=== PATIENT | male | born 2005 | race Two or more races ===

== ENCOUNTER → 2024-07-30 | Outpatient (CLI) | payer BC, SELFPAY ==
--- NOTE | 2024-07-30 | XR_ITS ---
Examination: Testicular sonography complete TECHNIQUE: Grayscale sonographic images testes, assessment arterial inflow venous outflow, Doppler spectral analysis carful analysis Exam date and time: July 30, 2024 1219 hours INDICATIONS: Bilateral groin pain radiating to the testicles beginning 2 months ago. FINDINGS: Right testis 3.9 cm epididymis 1.0 cm Arterial flow testicle. No testicular mass Left testis 3.8 cm epididymis 1.1 cm Arterial flow testicle. No testicular mass IMPRESSION: Negative study
== END | disposition home or self-care (01) ==
PROVIDERS: PCP Nurse Practitioner Family; Referring Provider Nurse Practitioner Family; Visit Provider Nurse Practitioner Family
DX: N50.812 Left testicular pain (principal); N50.811 Right testicular pain
CPT/HCPCS: 76870

== ENCOUNTER → 2024-08-10 | Outpatient (CLI) | payer BC, SELFPAY ==
--- NOTE | 2024-08-10 10:30 | XR_ITS ---
Examination: Abdomen sonogram, Limited Date and time of exam: August 10, 2024 1110 hours INDICATIONS: Abnormal serum ferritin levels on examination 3 months ago Technique: Real-time monge scale transabdominal sonographic images of the upper abdomen obtained. Findings: Normal gallbladder Normal common bile duct 0.2 cm Pancreatic head 1.9 cm Liver 12.0 cm smooth contour No focal liver lesions Normal hepatopedal portal venous oh IMPRESSION: Gallbladder Liver normal size no focal liver defects
== END | disposition home or self-care (01) ==
LOC: CDIM 10:55
PROVIDERS: PCP Nurse Practitioner Family; Referring Provider Nurse Practitioner Family; Visit Provider Nurse Practitioner Family
DX: R77.8 Other specified abnormalities of plasma proteins (principal)
CPT/HCPCS: 76705

== ENCOUNTER 2025-04-17 19:09 | Emergency (ER) | payer BC, SELFPAY ==
[2025-04-17 19:10] VITALS: BMI 29.8
[2025-04-17 19:50] VITALS: BP 126/81; PULSE 111; RESP 18; TEMP 37; O2SAT 97
--- NOTE | 2025-04-17 19:57 | XR_ITS ---
Examination: CT lumbar spine, without contrast. 2-D sagittal reconstructions. 2-D coronal reconstructions. 3-D reconstructions. Date and time of exam: April 17, 2025, 2019 hours INDICATIONS: Sharp back pain radiating to legs beginning 4 months ago CTDI: vol (mGy): 21.4 DLP: (mGycm): 625 Technique: Multiple 1.25 mm axial sections of the lumbar spine without intravenous contrast have been obtained. 2-D sagittal and coronal reconstructions have been obtained. 3-D reconstructions have been obtained. Low dose protocols were performed. One or more of the following dose reduction techniques were used; automated exposure control, adjustment of the mA and/or KV according to patient size, use of iterative reconstruction technique. Findings: Satisfactory alignment lumbar vertebral bodies No lumbar fracture Lumbar pedicles laminae transverse and posterior spinous processes intact No spondylolisthesis L5-S1 2 mm central lumbar disc bulge L4-L5 no disc protrusion L3-L4 no disc protrusion L2-3 no disc protrusion L1-L2 no disc protrusion IMPRESSION: No lumbar fracture No lumbar disc narrowing L5-S1 2 mm central lumbar disc bulge If symptoms persist, recommend MRI lumbar spine without contrast follow-up
--- NOTE | 2025-04-17 21:53 | PD.EDBACK ---
ED Back Injury Pain RME/HPI General Chief Complaint: Extremity Problem,Nontraumatic Stated Complaint: BILATERAL SCIATICA PAIN Time Seen by Provider: 04/17/25 19:10 Arrival date/time: 04/17/25 19:09 This is a case of 19-year-old male with history of sciatica came in in the emergency room due to lower back pain for 1 week patient denies any injury or trauma patient started to have lower back pain 1 week prior to arrival in the emergency room radiating to both lateral lower extremities patient denies any numbness weakness tingling sensation denies any incontinence to urine or stool Limitations: no limitations Related Data Home Medications ?Medication ?Instructions ?Recorded ?Confirmed escitalopram oxalate 5 mg tablet 10 mg PO QDAY 12/04/17 03/09/19 (Lexapro) quetiapine 50 mg tablet,extended 100 mg PO QPM 12/04/17 03/09/19 release 24 hr (Seroquel XR) Previous Rx's ?Medication ?Instructions ?Recorded baclofen 10 mg tablet 10 mg PO BID PRN muscle spasm #10 04/17/25 tabs hydrocodone 5 mg-acetaminophen 325 1 tab PO Q6H PRN pain #12 tabs 04/17/25 mg tablet lidocaine 5 % topical patch 1 patch topical QDAY #15 ea 04/17/25 (Lidoderm) Allergies Allergy/AdvReac Type Severity Reaction Status Date / Time No Known Allergies Allergy Verified 03/09/19 18:40 Review of Systems Review of Systems Systems Reviewed: All systems reviewed, normal except as documented Constitutional Constitutional: Reports system reviewed and no additional complaints, except as documented and Reports as per HPI ENT Ears, Nose, Mouth, and Throat: Denies neck pain Cardiovascular Cardiovascular: Reports system reviewed and no additional complaints, except as documented and Reports as per HPI Respiratory Respiratory: Reports system reviewed and no additional complaints, except as documented and Reports as per HPI Gastrointestinal Gastrointestinal: Reports system reviewed and no additional complaints, except as documented and Reports as per HPI Musculoskeletal Musculoskeletal: Reports system reviewed and no additional complaints, except as documented, Reports as per HPI, Reports back pain and Denies neck pain Neurologic Neurologic: Reports system reviewed and no additional complaints, except as documented and Reports as per HPI Past Medical History Past Medical History CARDIAC: Negative Congestive Heart Failure RESPIRATORY: Negative Chronic Obstructive Pulmonary Disease (COPD) GENITOURINARY: Negative Renal Disease ENDOCRINE: Negative Diabetes Mellitus Type 1 or Diabetes Mellitus Type 2 PSYCHO/SOCIAL: Positive Depression and Anxiety Social History SMOKING STATUS: Never smoker ED Exam General Limitations: Present no limitations General appearance: Present alert, in no apparent distress and other (Patient is awake alert oriented not in distress nontoxic looking well-hydrated well-nourished) Head Head exam: Present atraumatic, normocephalic and normal inspection Eye Eye exam: Present normal appearance, PERRL and EOMI ENT ENT exam: Present normal exam, normal oropharynx and mucous membranes moist Neck Neck exam: Present normal inspection, full ROM and trachea midline; Absent tenderness, meningismus, lymphadenopathy or thyromegaly Chest Chest inspection: Present normal inspection and symmetric chest wall rise; Absent tenderness Respiratory Respiratory exam: Present normal lung sounds bilaterally; Absent respiratory distress, wheezes, stridor, accessory muscle use or prolonged expiratory phase Cardiovascular Cardiovascular exam: Present regular rate, normal rhythm and normal heart sounds; Absent bradycardia, tachycardia, irregular rhythm, systolic murmur or diastolic murmur Abdominal Exam Abdominal exam: Present soft and normal bowel sounds; Absent distention, tenderness, guarding, rebound, rigidity, diminished bowel sounds, hyperactive bowel sounds or hypoactive bowel sounds Extremities Exam Extremities exam: Present normal inspection and full ROM Expanded Lower Extremity Exam Hip/Pelvis exam: Present normal inspection and full ROM; Absent tenderness or swelling Upper leg exam: Present normal inspection and full ROM; Absent tenderness or swelling Knee exam: Present normal inspection and full ROM; Absent tenderness or swelling Lower leg exam: Present normal inspection; Absent tenderness or swelling Back Exam Back exam: Present normal inspection, full ROM, tenderness (Mild to moderate tenderness on L1 L5 no crepitation no deformity no paraspinal no paravertebral tenderness) and muscle spasm; Absent CVA tenderness (R), CVA tenderness (L), paraspinal tenderness, vertebral tenderness, rashes, sciatic notch tenderness (R), sciatic notch tenderness (L), straight leg raise (R) or straight leg raise (L) Neurological Exam Neurological exam: Present alert, oriented X3, CN II-XII intact and reflexes normal; Absent motor sensory deficit Psychiatric Psychiatric exam: Present normal affect and normal mood Skin Skin exam: Present warm, dry, intact and normal color Course Quality Measures none Orders Category Date Time Status CT lumbar spine wo con Stat Exams 04/17/25 19:57 Completed HYDROcodone*/APAP 5/325 [[place] 5/325] Med 04/17/25 21:37 Discontinued 1 tab PO X1 ONE Ketorolac Inj [Toradol Inj] Med 04/17/25 21:37 Discontinued 30 mg IM X1 ONE dexAMETHasone INJ [Decadron Inj] Med 04/17/25 21:37 Discontinued 10 mg IM X1 ONE Vital Signs Vital signs: Vital Signs Temperature 98.6 F 04/17/25 19:50 Pulse Rate 111 H 04/17/25 19:50 Respiratory Rate 18 04/17/25 19:50 Blood Pressure 126/81 04/17/25 19:50 Pulse Oximetry (%) 97 04/17/25 19:50 Oxygen Delivery Method Room Air 04/17/25 19:50 Oxygen saturation is 97% in room Back Pain / Injury MDM Narrative MDM Narrative:: This is a case of 19-year-old male with history of sciatica came in in the emergency room due to lower back pain for 1 week patient denies any injury or trauma patient started to have lower back pain 1 week prior to arrival in the emergency room radiating to both lateral lower extremities patient denies any numbness weakness tingling sensation denies any incontinence to urine or stool physical examination patient is awake alert oriented not in distress nontoxic looking well-hydrated well-nourished abdominal exam is benign nonsurgical no guarding no rebound no rigidity negative psoas negative obturator negative Rovsing's negative McBurney's negative Biggs sign negative CVA tenderness patient noted to have mild to moderate tenderness on L1 L5 but no crepitation no deformity no redness no swelling leg raise exam is negative no CVA tenderness no paraspinal no paravertebral tenderness with muscle spasm steady gait the rest of the physical examination and neurological exam is normal and unremarkable CT scan showed bulging lumbar disc based on my physical examination and history patient symptoms suggestive of bulging lumbar disc with radiculopathy patient was given Toradol dexamethasone and [place] which improved and resolve the pain patient was advised to follow-up with PCP to be referred to neurosurgeon for possible MRI to rule out herniated disc and for any worsening symptoms return to the emergency room immediately or call 911 at the time of exam no signs and symptoms of cauda equina Patient was discharged with comfortable condition walking with stable gait. Patient verbalized no further complains explained diagnosis and answered patient question. Patient is comfortable with the proposed management plan including the need to follow up with his/her primary care physician and any specialist if applicable Discussed patient for any urgent condition or worsening sx, He/She needed to go to emergency room immediately or call 911. Patient acknowledge the responsibility to follow up as instructed and to monitor her/his symptoms. For any persistence of the symptoms for more than 3-5 days return precaution advised. Discussed the result of the test and was given printed discharge instruction Patient data External records reviewed:: [facility] previous records Clinical information provided by:: patient Social determinants that could affect healthcare access:: none Patient has the following chronic illnesses:: None How is presenting disease/condition affected by chronic disease/condition?: no chronic disease Evaluation data The following diagnostics were reviewed and interpreted by me:: radiology exam(s) Lab and/or radiology exams considered but not ordered:: Reviewed Interpretation Summary: Reviewed Medications / Prescriptions Medications or Prescriptions considered but not ordered:: Given Medication administrations:: Medication Administration History Discontinued Medications Hydrocodone Bitart/Acetaminophen (Hydrocodone/Apap 5/325 Tablet) 1 tab PO X1 ONE Stop: 04/17/25 21:38 Dexamethasone Sodium Phosphate (Dexamethasone Sod Phos Inj 10 Mg/Ml Vial) 10 mg IM X1 ONE Stop: 04/17/25 21:38 Ketorolac Tromethamine (Ketorolac Inj 60 Mg/2 Ml Vial) 30 mg IM X1 ONE Stop: 04/17/25 21:38 Given Consultations Consultation(s) initiated? (list below): No Diagnosis Differential diagnosis back pain/injury: lumbar radiculopathy, sciatica and other (Lumbar bulging disc) Most likely diagnosis given after review of the tests above:: Lumbar bulging disc Admission Indicated Admission indicated?: not indicated Explain why admission is indicated or not indicated:: Not indicated Admission Request Was there a request for admission?: No Admission Attestation Admission request attestation: Not indicated Disposition Plan Disposition Plan: Discharge Discharge Attestation Discharge Attestation: The patient and all family members were given an opportunity to ask questions and understood the discharge instructions. Discharge instructions specifically effects, indications for sooner follow up or return to the emergency department, and the expected course of current diagnosis. Patient condition: Stable Discharge Plan Plan Patient Disposition: HOME (Self Care) Patient condition on transfer: Stable Prescriptions/Referrals Prescriptions/Med Rec: New hydrocodone-acetaminophen 5-325 mg tablet 1 tab PO Q6H MDD max 4 tabs per day PRN (Reason: pain) Qty: 12 0RF baclofen 10 mg tablet 10 mg PO BID PRN (Reason: muscle spasm) Qty: 10 0RF lidocaine [Lidoderm] 5 % adhesive patch,medicated 1 patch topical QDAY Qty: 15 0RF Rx Instructions: leave on most painful area for up to 12 hrs No Action escitalopram oxalate [Lexapro] 5 mg Tablet 10 mg PO QDAY quetiapine [Seroquel XR] 50 mg Tablet Extended Release 24 Hr 100 mg PO QPM Referrals: No Primary/Family,Physician [Primary Care Provider] - In 1 week Problem List Clinical Impression: Back muscle spasm, Bulging lumbar disc, Lumbar radiculopathy Patient/Caregiver Discharge Instructions Education Materials: Common Spine and Disk Problems, Understanding Lumbar Radiculopathy, ED Back Spasm, No Trauma, ED Degenerative Disk Disease, ED Muscle Spasm Additional Instructions: Follow-up with your primary care physician in 2 days for reevaluation and to be referred to neurosurgeon for further evaluation and treatment of lumbar bulging disc and lumbar radiculopathy for possible MRI to ruled out herniated disc and pain management doctor for pain control worsening symptoms or any emergent concerns such as numbness weakness tingling sensation incontinence to urine or stool return to the emergency room immediately or call 911 take your medication as directed ice pack and warm compress as needed for pain no lifting no pulling no pushing more than 5 pounds is advsied Print Language: Maltese Stand Alone Forms: Marisel Award Info., Patient Portal Info Letter PA/ANY Supervising Physician VENICE/ANY Supervising Physician: Dr. Thomas
[2025-04-17] MEDS: KETOROLAC INJ 60 MG/2 ML VIAL 30 MG IM (22:15)
[2025-04-17] MEDS: HYDROcodone/APAP 5/325 TABLET 1 TAB PO (22:15)
== END 2025-04-17 22:34 | disposition home or self-care (01) ==
PROVIDERS: Emergency Provider Emergency Medicine
DX: M51.17 Intervertebral disc disorders with radiculopathy, lumbosacral region (principal); M62.830 Muscle spasm of back
CPT/HCPCS: 72131; 96372; 99283; J1100; J1885; A9270